=== PATIENT | female | born 1995 ===

== ENCOUNTER 2021-07-09 08:30 | Inpatient (IN) | payer MEDICARE, MEDICAID ==
[~2021-07-09] VITALS: Ht 157.5 cm; Wt 48.1 kg
[2021-07-09 10:39] LABS: BASOPHILS % (AUTO) 0.1 % (0.0-2.0); EOSINOPHILS % (AUTO) 0.1 % (1.0-6.0); HEMATOCRIT 35.5 % (36-46); HEMOGLOBIN 11.8 g/dL (12.0-16.0); LYMPHOCYTES # (AUTO) 1.6 K/uL (1.0-4.8); LYMPHOCYTES % (AUTO) 17.2 % (22.0-44.0); MEAN CORPUSCULAR HEMOGLOBIN 27.1 pg (26.0-34.0); MEAN CORPUSCULAR HGB CONC 33.2 G/dL (31.0-37.0); MEAN CORPUSCULAR VOLUME 82 fL (80-100); MONOCYTES # (AUTO) 0.6 K/uL (0.1-1.0); NEUTROPHILS # (AUTO) 6.8 K/uL (1.8-7.7); NEUTROPHILS % (AUTO) 75.6 % (40.0-70.0); PLATELET COUNT (AUTO) 340 K/uL (150-450); RED BLOOD CELL COUNT(AUTO) 4.36 MIL/uL (4.00-5.20)
[2021-07-09 10:47] LABS: ANION GAP 12 mmol/L (8-16); CARBON DIOXIDE 24 mmol/L (22-29); CHLORIDE 103 mmol/L (98-107); CREATININE 0.62 mg/dL (0.60-1.30); GLOMERULAR FILTR. RATE CALC > 60 mL/min (>60); GLUCOSE,RANDOM 98 mg/dL (70-110); POTASSIUM 3.2 mmol/L (3.5-5.1); SODIUM SERUM 139 mmol/L (136-145); UREA NITROGEN, BLOOD 5 mg/dL (7-18)
[2021-07-09 10:53] LABS: ALANINE AMINOTRANSFERASE 9 U/L (12-78); ALBUMIN 3.3 g/dL (3.4-5.0); ALKALINE PHOSPHATASE 80 U/L (46-116); ASPARTATE AMINOTRANSFERASE 10 U/L (15-37); BILIRUBIN,TOTAL 0.2 mg/dL (0.1-1.0); TOTAL PROTEIN, SERUM 8.1 g/dL (6.4-8.2)
[2021-07-09 10:54] LABS: AMPHET/METH SCREEN,URINE NEGATIVE (NEGATIVE); BARBITURATE SCREEN, URINE NEGATIVE (NEGATIVE); BENZODIAZEPINES SCREEN,URINE NEGATIVE (NEGATIVE); CANNABINOID SCREEN,URINE NEGATIVE (NEGATIVE); COCAINE SCREEN,URINE NEGATIVE (NEGATIVE); METHADONE SCREEN, URINE NEGATIVE (NEGATIVE); OPIATE SCREEN,URINE NEGATIVE (NEGATIVE); PHENCYCLIDINE SCREEN,URINE NEGATIVE (NEGATIVE)
[2021-07-09 12:00] LABS: COVID AG,FIA SOURCE NASAL SWAB
[2021-07-09] MEDS ORDERED: HALOPERIDOL 5 MG TABLET PO PRN (14:15)
[2021-07-09] MEDS ORDERED: ZOLPIDEM TARTRATE 10 MG TABLET PO PRN (14:15)
[2021-07-09 14:31] LABS: APPEARANCE,URINE HAZY (CLEAR); BILIRUBIN,URINE NEGATIVE (NEGATIVE); GLUCOSE, URINE (UA) NEGATIVE (NEGATIVE); KETONES,URINE NEGATIVE (NEGATIVE); LEUKOCYTE ESTERASE ,URINE SMALL (NEGATIVE); NITRATE,URINE NEGATIVE (NEGATIVE); OCCULT BLOOD,URINE LARGE (NEGATIVE); PH,URINE 6.5 (5.0-8.0); PROTEIN,URINE 30-70 mg/dL (NEGATIVE); SPECIFIC GRAVITIY, URINE 1.009 (1.003-1.030); UROBILINOGEN,URINE <=1.0 mg/dL (<=1.0)
[2021-07-09 14:43] LABS: RBC,URINE 26-50 /HPF (0-2)
[2021-07-09 14:44] LABS: BACTERIA,URINE Moderate /HPF (None Seen); SQUAMOUS EPITHELIAL CELL,UR Moderate /LPF (None Seen)
[2021-07-09 17:14] VITALS: BP 110/67
[2021-07-09] MEDS: LORazepam 2 MG TABLET PO PRN (18:03)
[2021-07-10 01:11] VITALS: BP 106/71
[2021-07-10] MEDS ORDERED: MAG HYDROX/AL HYDROX/SIMETH ES 30 ML SUSPENSION UDCUP PO PRN (05:45)
[2021-07-10] MEDS ORDERED: ACETAMINOPHEN 325 MG TABLET PO PRN (05:45)
[2021-07-10] MEDS ORDERED: LOPERAMIDE HCL 2 MG CAPSULE PO PRN (05:45)
[2021-07-10] MEDS ORDERED: BENZOCAINE/MENTHOL LOZENGE PO PRN (05:45)
[2021-07-10] MEDS ORDERED: IBUPROFEN 600 MG TABLET PO PRN (05:45)
[2021-07-10] MEDS ORDERED: POTASSIUM CHLORIDE 20 MEQ ER TABLET PO ONE (05:45)
[2021-07-10] MEDS ORDERED: ONDANSETRON HCL 4 MG TABLET PO PRN (05:45)
[2021-07-10] MEDS ORDERED: MAGNESIUM HYDROXIDE SUSPENSION 30 ML UDCUP PO PRN (05:45)
[2021-07-10] MEDS ORDERED: OMEPRAZOLE 20 MG CAPSULE PO PRN (05:45)
[2021-07-10] MEDS ORDERED: PETROLATUM,WHITE 28 GM JELLY TP PRN (05:45)
[2021-07-10] MEDS ORDERED: DOCUSATE SODIUM 100 MG CAPSULE PO PRN (05:45)
[2021-07-10] MEDS ORDERED: BACITRACIN 28 GM OINTMENT TP PRN (05:45)
[2021-07-10] MEDS ORDERED: CloNIDine HCL 0.1 MG TABLET PO PRN (05:45)
[2021-07-10] MEDS ORDERED: ALBUTEROL SULFATE HFA 90 MCG/PUFF 8 GM INHALER IH PRN (05:45)
[2021-07-10] MEDS: CEPHALEXIN MONOHYDRATE 500 MG CAPSULE PO SCH ×3 (08:33→16:33)
[2021-07-10 09:12] VITALS: BP 110/70
[2021-07-10 16:14] VITALS: BP 107/73
[2021-07-10] MEDS: LORazepam 2 MG TABLET PO PRN (16:33)
[2021-07-11 01:09] VITALS: BP 105/67
[2021-07-11] MEDS: CEPHALEXIN MONOHYDRATE 500 MG CAPSULE PO SCH ×2 (08:16→16:32)
[2021-07-11 10:24] VITALS: BP 121/66
[2021-07-11 16:23] VITALS: BP 153/75
[2021-07-11] MEDS: RisperiDONE 3 MG TABLET PO SCH (16:32)
[2021-07-11] MEDS: BENZTROPINE MESYLATE 1 MG TABLET PO SCH (16:32)
[2021-07-11] MEDS: DIVALPROEX SODIUM 500 MG DR TABLET PO SCH (16:33)
[2021-07-12 00:35] VITALS: BP 140/72
[2021-07-12] MEDS: BENZTROPINE MESYLATE 1 MG TABLET PO SCH ×2 (08:36→16:37)
[2021-07-12] MEDS: CEPHALEXIN MONOHYDRATE 500 MG CAPSULE PO SCH (08:36)
[2021-07-12] MEDS: RisperiDONE 3 MG TABLET PO SCH ×2 (08:36→16:37)
[2021-07-12] MEDS: DIVALPROEX SODIUM 500 MG DR TABLET PO SCH ×2 (08:45→16:37)
[2021-07-12 09:57] VITALS: BP 93/67
[2021-07-12 16:19] VITALS: BP 110/71
[2021-07-13 07:26] VITALS: BP 105/68
[2021-07-13] MEDS: DIVALPROEX SODIUM 500 MG DR TABLET PO SCH ×2 (08:15→16:31)
[2021-07-13] MEDS: RisperiDONE 3 MG TABLET PO SCH ×2 (08:15→16:31)
[2021-07-13] MEDS: BENZTROPINE MESYLATE 1 MG TABLET PO SCH ×2 (08:15→16:31)
[2021-07-13 16:19] VITALS: BP 100/62
[2021-07-14 06:09] VITALS: BP 106/60
[2021-07-14 08:36] LABS: GLUCOMETER DEV NAME(LOC) POC.BV
[2021-07-14 08:42] VITALS: BP 101/62
[2021-07-14] MEDS: BENZTROPINE MESYLATE 1 MG TABLET PO SCH ×2 (09:17→16:52)
[2021-07-14] MEDS: RisperiDONE 3 MG TABLET PO SCH ×2 (09:17→16:51)
[2021-07-14] MEDS: DIVALPROEX SODIUM 500 MG DR TABLET PO SCH ×2 (09:17→16:52)
[2021-07-14 16:17] VITALS: BP 109/68
[2021-07-15 00:54] VITALS: BP 107/65
[2021-07-15] MEDS: BENZTROPINE MESYLATE 1 MG TABLET PO SCH ×2 (08:51→16:49)
[2021-07-15] MEDS: DIVALPROEX SODIUM 500 MG DR TABLET PO SCH ×2 (08:51→16:49)
[2021-07-15] MEDS: RisperiDONE 3 MG TABLET PO SCH ×2 (08:51→16:50)
[2021-07-15 09:43] VITALS: BP 124/73
[2021-07-15 16:23] VITALS: BP 103/71
[2021-07-16 01:25] VITALS: BP 102/65
[2021-07-16] MEDS: RisperiDONE 3 MG TABLET PO SCH ×2 (09:00→16:37)
[2021-07-16] MEDS: DIVALPROEX SODIUM 500 MG DR TABLET PO SCH ×2 (09:00→16:37)
[2021-07-16] MEDS: BENZTROPINE MESYLATE 1 MG TABLET PO SCH ×2 (09:01→16:37)
[2021-07-16 16:17] VITALS: BP 98/61
[2021-07-17 00:34] VITALS: BP 102/65
[2021-07-17] MEDS: RisperiDONE 3 MG TABLET PO SCH ×2 (08:23→16:02)
[2021-07-17] MEDS: MULTIVITAMINS WITH MINERALS, THERAPEUTIC TABLET PO SCH (08:23)
[2021-07-17] MEDS: BENZTROPINE MESYLATE 1 MG TABLET PO SCH ×2 (08:24→16:02)
[2021-07-17] MEDS: DIVALPROEX SODIUM 500 MG DR TABLET PO SCH ×2 (08:24→16:02)
[2021-07-17 16:21] VITALS: BP 111/76
[2021-07-18 00:34] VITALS: BP 106/62
[2021-07-18 08:14] VITALS: BP 109/61
[2021-07-18] MEDS: MULTIVITAMINS WITH MINERALS, THERAPEUTIC TABLET PO SCH (08:48)
[2021-07-18] MEDS: DIVALPROEX SODIUM 500 MG DR TABLET PO SCH ×2 (08:48→16:36)
[2021-07-18] MEDS: BENZTROPINE MESYLATE 1 MG TABLET PO SCH ×2 (08:48→16:36)
[2021-07-18] MEDS: RisperiDONE 3 MG TABLET PO SCH ×2 (08:48→16:36)
[2021-07-18 16:10] VITALS: BP 110/79
[2021-07-18] MEDS ORDERED: BENZ1TAB10 PO (18:49)
[2021-07-18] MEDS ORDERED: DIVA-112 PO (18:50)
[2021-07-18] MEDS ORDERED: RISP3TAB35 PO (18:50)
== END 2021-07-18 19:00 | disposition home or self-care (01) | DRG 885 ==
LOC: EDBD 08:56 → EMS 08:56 → B2S 12:33
PROVIDERS: ADMIT Psychiatry & Neurology Psychiatry; ATTEND Psychiatry & Neurology Psychiatry
DX: F25.9 Schizoaffective disorder, unspecified (principal); F32.A Depression, unspecified; F41.9 Anxiety disorder, unspecified; G47.00 Insomnia, unspecified; R82.90 Unspecified abnormal findings in urine; E87.6 Hypokalemia; K59.00 Constipation, unspecified; Z20.822 Contact with and (suspected) exposure to COVID-19; Q96.9 Turner's syndrome, unspecified; Z79.899 Other long term (current) drug therapy
CPT/HCPCS: 80053; 81001; 85025; 87081; 87086; 99285; G0480